=== PATIENT | male | born 1985 | race Caucasian/White ===

== ENCOUNTER 2020-05-09 19:36 | Emergency (ER) | payer OTHER ==
[~2020-05-09] VITALS: Ht 172.7 cm; Wt 81.6 kg
[2020-05-09 20:19] VITALS: Ht 172.7 cm; Wt 81.6 kg
[2020-05-09 21:05] VITALS: BP 106/83
== END 2020-05-09 21:06 | disposition home or self-care (01) ==
LOC: ED 19:36
DX: U07.1 COVID-19 (principal); J45.909 Unspecified asthma, uncomplicated
CPT/HCPCS: U0003-CS

== ENCOUNTER 2020-05-15 18:39 | Emergency (ER) | payer OTHER ==
[~2020-05-15] VITALS: Ht 182.9 cm; Wt 90.7 kg
[2020-05-15 19:26] VITALS: Ht 182.9 cm; Wt 90.7 kg
[2020-05-15 20:56] VITALS: BP 100/76
== END 2020-05-15 20:55 | disposition home or self-care (01) ==
LOC: ED 18:39
DX: U07.1 COVID-19 (principal); R09.1 Pleurisy; F41.9 Anxiety disorder, unspecified; J45.909 Unspecified asthma, uncomplicated; F17.210 Nicotine dependence, cigarettes, uncomplicated; Z71.6 Tobacco abuse counseling
CPT/HCPCS: 99406; Q0092

== ENCOUNTER 2020-08-28 14:39 | Emergency (ER) | payer OTHER ==
[~2020-08-28] VITALS: Ht 172.7 cm; Wt 78.0 kg
[2020-08-28 16:26] VITALS: BP 127/81
== END 2020-08-28 16:27 | disposition home or self-care (01) ==
LOC: ED 14:39
DX: R04.0 Epistaxis (principal); J45.909 Unspecified asthma, uncomplicated
CPT/HCPCS: J3490

== ENCOUNTER 2020-08-29 08:48 | Emergency (ER) | payer OTHER ==
[~2020-08-29] VITALS: Ht 172.7 cm; Wt 78.0 kg
[2020-08-29 08:54] VITALS: Ht 172.7 cm; Wt 78.0 kg
[2020-08-29 11:25] VITALS: BP 118/88
== END 2020-08-29 11:25 | disposition home or self-care (01) ==
LOC: ED 08:48
DX: R04.0 Epistaxis (principal); R51.9 Headache, unspecified; J45.909 Unspecified asthma, uncomplicated